=== PATIENT | female | born 1970 | race Hispanic/Latino ===

== ENCOUNTER 2017-04-10 17:19 | Emergency (ER) | payer MEDICAID ==
[2017-04-10] MEDS ORDERED: IBUPROFEN 600 MG TABLET ONE (18:24)
== END 2017-04-10 19:09 | disposition home or self-care (01) ==
LOC: EDH 17:19
DX: S90.32XA Contusion of left foot, initial encounter (principal); Z72.0 Tobacco use; Z86.018 Personal history of other benign neoplasm; Z88.5 Allergy status to narcotic agent; W22.8XXA Striking against or struck by other objects, initial encounter; Y93.89 Activity, other specified; Y92.098 Other place in other non-institutional residence as the place of occurrence of the external cause; Y99.8 Other external cause status
CPT/HCPCS: 73630